=== PATIENT | male | born 1965 | race African-American/Black ===

== ENCOUNTER 2016-10-28 05:22 | Inpatient (IN) | payer SELFPAY ==
[~2016-10-28] VITALS: Ht 172.7 cm; Wt 79.8 kg
[2016-10-28] MEDS ORDERED: ASPirin 81 mg TAB PO ONE ×2 (05:45→06:30)
[2016-10-28] MEDS ORDERED: MORPHINE SULFATE 4 MG/ML SYRG IV ONE (05:45)
[2016-10-28] MEDS ORDERED: ONDANSETRON HCL 4 MG/2 ML VIAL IV ONE (05:45)
[2016-10-28] MEDS ORDERED: HEPARIN SODIUM (PORCINE) 5000 UNITS/ML 1ML VIAL ONE (06:05)
[2016-10-28] MEDS ORDERED: ASPirin 81 mg TAB ONE (06:09)
[2016-10-28 06:16] LABS: INR 0.97 (0.9-1.15); Partial Thromboplastin Time 22.8 sec (22.64-33.71)
[2016-10-28 06:20] LABS: Basophils # (auto) 0 uL; Basophils % (auto) 0.1 % (0.0-2.0); Eosinophils # (auto) 0 uL; Eosinophils % (auto) 0.3 % (0.0-7.0); Hemoglobin 14.8 g/dL (13.5-17.5); Lymphocytes # (auto) 0.7 uL; Lymphocytes % (auto) 7.5 % (10.0-50.0); Mean Corpuscular Hemoglobin 28.6 pg (28.0-32.0); Mean Corpuscular Hgb Conc. 32.9 g/dL (32.0-36.0); Mean Platelet Volume 9.1 fL (7.4-10.4); Monocytes # (auto) 0.4 uL; Monocytes % (auto) 3.9 % (0.0-12.0); Neutrophils % (auto) 88.2 % (37.0-80.0); Platelet Count (auto) 274 10^3/uL (140-450); Red Cell Distribution Width 14.1 % (11.6-16.0); White Blood Cell 9.1 10^3/uL (4.4-10.8)
[2016-10-28] MEDS ORDERED: ANGIOMAX 250 MG VIAL IV ONE (06:27)
[2016-10-28] MEDS ORDERED: SODIUM CHL 0.9% 50 ML ONE (06:27)
[2016-10-28 06:28] LABS: Albumin 4.3 g/dL (3.4-5.0); Calcium 8.5 mg/dL (8.5-10.1); Potassium 3.9 mmol/L (3.5-5.1)
[2016-10-28] MEDS ORDERED: EPTIFIBATIDE INJ (2MG/ML) 10ML VIAL IV ONE (06:28)
[2016-10-28] MEDS ORDERED: HEPARIN 1,000 UNITS/ml 1ML VIAL IV ONE (06:30)
[2016-10-28 06:31] LABS: BUN/Creatinine Ratio 8.8
[2016-10-28] MEDS ORDERED: IODIXANOL 320MG/ML 100ML BTL IV ONE (06:31)
[2016-10-28] MEDS ORDERED: LIDOCAINE 2%HCL (LOCAL ANESTH.) INJ 20ML MDV ONE (06:31)
[2016-10-28 06:34] LABS: Bilirubin, Total 0.4 mg/dL (0.2-1.0); Total Protein 8.3 g/dL (6.4-8.2)
[2016-10-28] MEDS ORDERED: fentaNYL CITRATE 100 MCG/2 ML VL ONE (06:46)
[2016-10-28] MEDS ORDERED: MIDAZOLAM HCL 1MG/1ML-2 ML VIAL ONE (06:46)
[2016-10-28] MEDS: SODIUM CHLORIDE 0.9% 1,000 ML IV SCH ×4 (07:12→19:45)
[2016-10-28] MEDS ORDERED: NITROGLYCERIN 0.4 MG SL TAB SL PRN (07:15)
[2016-10-28] MEDS ORDERED: HYDROcodone-ACET 5/325MG TAB PO PRN (07:15)
[2016-10-28] MEDS ORDERED: ACETAMINOPHEN 500 MG TAB PO PRN (07:15)
[2016-10-28] MEDS ORDERED: MORPHINE SULF INJ 2 MG/ML SYRINGE 1ML IV PRN (07:15)
[2016-10-28] MEDS ORDERED: HYDROcodone-ACET 5/325MG TAB ONE (07:17)
[2016-10-28] MEDS ORDERED: amLODIPine BESYLATE 5 MG TAB PO ONE (07:45)
[2016-10-28] MEDS ORDERED: NITROGLYCERIN 0.4 MG SL TAB SL ONE (10:00)
[2016-10-28] MEDS ORDERED: PANTOPRAZOLE SODIUM 40 MG/10 ML VIAL IV ONE (11:45)
[2016-10-28] MEDS ORDERED: LABETALOL HCL 5 MG/ML 4ML SYRINGE IV PRN (11:45)
[2016-10-28 12:00] VITALS: BP 155/105
[2016-10-28] MEDS ORDERED: IOHEXOL 350 MG/ML 100ML IJ ONE (12:36)
[2016-10-28] MEDS ORDERED: SODIUM CHLORIDE 0.9% 500 ML IV ONE (12:45)
[2016-10-28 13:15] LABS: Cholesterol 269 mg/dL (<200); HDL Cholesterol 75 mg/dL (40-59); LDL Cholesterol 181 mg/dL (<100); Triglycerides 91 mg/dL (<150)
[2016-10-28] MEDS: SODIUM CHLOR 0.9% PF (SALINE LOCK) 10ML VIAL IV SCH ×2 (14:00→22:22)
[2016-10-28] MEDS ORDERED: AZITHROMYCIN 500MG/D5W 250ML 250 ML IV ONE (14:30)
[2016-10-28] MEDS ORDERED: cefTRIAXone 1GM/50ML D5W 50 ML IV ONE (14:30)
[2016-10-28 15:17] LABS: Urine Bilirubin Negative (Negative); Urine Blood Negative /uL (Negative); Urine Color Yellow (Yellow); Urine Glucose 2+ mg/dL (Normal); Urine Ketone Negative (Negative); Urine Nitrite Negative (Negative); Urine RBC <1 /hpf (0 - 3); Urine Urobilinogen Normal (Negative)
[2016-10-28 17:00] VITALS: BP 145/95
[2016-10-28] MEDS: HYDROmorphone HCL 2 MG/ML VL IV PRN (17:42)
[2016-10-28 22:00] VITALS: BP 136/98
[2016-10-29] MEDS: HYDROmorphone HCL 2 MG/ML VL IV PRN (01:01)
[2016-10-29] MEDS: SODIUM CHLORIDE 0.9% 1,000 ML IV SCH ×2 (03:45→11:33)
[2016-10-29 04:38] VITALS: BP 129/98
[2016-10-29] MEDS: SODIUM CHLOR 0.9% PF (SALINE LOCK) 10ML VIAL IV SCH ×2 (06:48→14:28)
[2016-10-29 07:28] LABS: Albumin 3.3 g/dL (3.4-5.0); BUN/Creatinine Ratio 7.8; Bilirubin, Total 1.3 mg/dL (0.2-1.0); Potassium 3.7 mmol/L (3.5-5.1); Total Protein 7.1 g/dL (6.4-8.2)
[2016-10-29 07:33] LABS: Basophils # (auto) 0 uL; Basophils % (auto) 0.6 % (0.0-2.0); Eosinophils # (auto) 0.1 uL; Eosinophils % (auto) 1.3 % (0.0-7.0); Hematocrit 40.8 % (41.0-53.0); Lymphocytes # (auto) 1.6 uL; Lymphocytes % (auto) 18.8 % (10.0-50.0); Mean Corpuscular Hemoglobin 27.9 pg (28.0-32.0); Mean Corpuscular Hgb Conc. 31.7 g/dL (32.0-36.0); Mean Corpuscular Volume 87.8 fL (80.0-100.0); Mean Platelet Volume 9.1 fL (7.4-10.4); Monocytes # (auto) 0.9 uL; Monocytes % (auto) 10.4 % (0.0-12.0); Neutrophils # (auto) 5.8 uL; Neutrophils % (auto) 68.9 % (37.0-80.0); Platelet Count (auto) 249 10^3/uL (140-450); Red Cell Distribution Width 14.3 % (11.6-16.0); White Blood Cell 8.4 10^3/uL (4.4-10.8)
[2016-10-29 09:00] VITALS: BP 144/95
[2016-10-29] MEDS: PANTOPRAZOLE SODIUM 40 MG/10 ML VIAL IV SCH (09:11)
[2016-10-29] MEDS: cefTRIAXone 1GM/50ML D5W 50 ML IV SCH (09:12)
[2016-10-29] MEDS: AZITHROMYCIN 500MG/D5W 250ML 250 ML IV SCH (10:52)
[2016-10-29 11:06] VITALS: BP 172/116
[2016-10-29] MEDS ORDERED: HYDROmorphone HCL 2 MG/ML VL IV PRN (11:30)
[2016-10-29 13:27] VITALS: BP 108/62
[2016-10-29 17:00] VITALS: BP 139/90
[2016-10-29 21:30] VITALS: BP 138/87
[2016-10-30] MEDS: SODIUM CHLOR 0.9% PF (SALINE LOCK) 10ML VIAL IV SCH ×2 (00:48→05:15)
[2016-10-30] MEDS: SODIUM CHLORIDE 0.9% 1,000 ML IV SCH ×2 (00:49→07:24)
[2016-10-30 05:00] VITALS: BP_SYST 133; BP_SYST 155; BP_DIAS 76; BP_DIAS 86
[2016-10-30 06:37] LABS: Basophils # (auto) 0 uL; Basophils % (auto) 0.6 % (0.0-2.0); Eosinophils # (auto) 0.3 uL; Eosinophils % (auto) 5.7 % (0.0-7.0); Hematocrit 39.7 % (41.0-53.0); Hemoglobin 12.7 g/dL (13.5-17.5); Lymphocytes # (auto) 1.4 uL; Lymphocytes % (auto) 26.6 % (10.0-50.0); Mean Corpuscular Hemoglobin 27.9 pg (28.0-32.0); Mean Corpuscular Hgb Conc. 31.9 g/dL (32.0-36.0); Mean Corpuscular Volume 87.5 fL (80.0-100.0); Mean Platelet Volume 9.1 fL (7.4-10.4); Monocytes # (auto) 0.5 uL; Monocytes % (auto) 8.8 % (0.0-12.0); Neutrophils # (auto) 3.2 uL; Neutrophils % (auto) 58.3 % (37.0-80.0); Platelet Count (auto) 250 10^3/uL (140-450); Red Cell Distribution Width 14.1 % (11.6-16.0); White Blood Cell 5.4 10^3/uL (4.4-10.8)
[2016-10-30 06:48] LABS: Potassium 3.4 mmol/L (3.5-5.1)
[2016-10-30 06:54] LABS: BUN/Creatinine Ratio 10.3
[2016-10-30 09:00] VITALS: BP 151/102
[2016-10-30] MEDS: cefTRIAXone 1GM/50ML D5W 50 ML IV SCH (09:00)
[2016-10-30] MEDS: PANTOPRAZOLE SODIUM 40 MG/10 ML VIAL IV SCH (10:00)
[2016-10-30] MEDS: AZITHROMYCIN 500MG/D5W 250ML 250 ML IV SCH (10:00)
[2016-10-30] MEDS ORDERED: amLODIPine BESYLATE 5 MG TAB PO ONE (10:15)
[2016-10-30] MEDS ORDERED: HCTZ 25 MG TAB PO ONE (10:15)
[2016-10-30 13:00] VITALS: BP 145/103
== END 2016-10-30 19:00 | disposition home or self-care (01) | DRG 190 ==
LOC: ER 05:27 → TELE-EAST 05:28 → EAST 10-29 11:25
PROVIDERS: ADMIT Internal Medicine; ATTEND Internal Medicine
PROC: 4A023N7 Measurement of Cardiac Sampling and Pressure, Left Heart, Percutaneous Approach (ICD-10-PCS; principal; 2016-10-28)
PROC: B2111ZZ Fluoroscopy of Multiple Coronary Arteries using Low Osmolar Contrast (ICD-10-PCS; 2016-10-28)
PROC: B3101ZZ Fluoroscopy of Thoracic Aorta using Low Osmolar Contrast (ICD-10-PCS; 2016-10-28)
PROC: B41F1ZZ Fluoroscopy of Right Lower Extremity Arteries using Low Osmolar Contrast (ICD-10-PCS; 2016-10-28)
DX: J44.0 Chronic obstructive pulmonary disease with (acute) lower respiratory infection (principal); J69.0 Pneumonitis due to inhalation of food and vomit; E78.5 Hyperlipidemia, unspecified; F12.90 Cannabis use, unspecified, uncomplicated; I10 Essential (primary) hypertension
CPT/HCPCS: 36415; 71010; 71275; 76705; 80048; 80053; 80061; 81001; 82962; 83690; 83735; 84443; 84484; 85025; 85610; 85730; 86850; 86900; 86901; 93005; 93306; 93458; 93567; 94761; 96374; 96375; 99152; C9113; J0696; J2250; J2405; Q9967